=== PATIENT | female | born 1945 | race Caucasian/White ===

== ENCOUNTER 2021-03-19 08:35 | Outpatient (CLI) | payer MEDICARE | END 2021-03-19 08:36 | disposition home or self-care (01) | LOC: CSHCT 08:35 | PROVIDERS: ATTEND Family Medicine | DX: Z12.2 Encounter for screening for malignant neoplasm of respiratory organs (principal); Z87.891 Personal history of nicotine dependence; J44.9 Chronic obstructive pulmonary disease, unspecified | CPT/HCPCS: 71271 ==

== ENCOUNTER 2021-03-27 10:19 | Outpatient (CLI) | payer MEDICARE, OTHER | END 2021-03-27 10:20 | disposition home or self-care (01) | LOC: CSHMAMMO 10:19 | PROVIDERS: ATTEND Family Medicine | DX: Z12.31 Encounter for screening mammogram for malignant neoplasm of breast (principal) | CPT/HCPCS: 77063; 77067 ==

== ENCOUNTER 2021-10-11 09:18 | Outpatient (CLI) | payer MEDICARE | END 2021-10-11 09:19 | disposition home or self-care (01) | LOC: CSHCT 09:18 | PROVIDERS: ATTEND Family Medicine | DX: Z12.2 Encounter for screening for malignant neoplasm of respiratory organs (principal); Z87.891 Personal history of nicotine dependence; E07.89 Other specified disorders of thyroid | CPT/HCPCS: 71271 ==

== ENCOUNTER 2021-12-23 20:00 | Emergency (ER) | payer MEDICARE ==
[2021-12-23 21:44] LABS: #Eosinphils 0.2 10x3/uL (0.0-0.5); #Monocytes 0.5 10x3/uL (0.0-1.1); #Neutrophils 2.9 10x3/uL (1.5-8.4); %Basophils 0.3 % (0.0-2.0); %Eosinophils 2.8 % (0.0-6.0); %Lymphocytes 37.8 % (18.0-47.0); %Monocytes 8.1 % (0.0-10.0); %Neutrophils 50.8 % (40.0-75.0); Hemoglobin 11.6 g/dL (12.0-15.5); Mean Corpuscular HGB CONC 33.3 g/dL (32.0-36.0); Mean Corpuscular Hemoglobin 31.1 pg (27.0-33.0); Mean Corpuscular Volume 93.3 fl (81.6-98.3); Mean Platelet Volume 10.4 fl (7.4-10.4); Platelet Count 216 10x3/uL (150-450); RBC Distribution Width 13.9 % (11.5-14.5); Red Blood Cell (RBC) Count 3.73 10x6/uL (3.90-5.03); White Blood Cell (WBC) Count 5.8 10x3/uL (3.5-10.5)
[2021-12-23 21:56] LABS: SARS-CoV-2 NAA Rapid Test Not Detected (NotDetected)
[2021-12-23 21:58] LABS: ALT (SGPT) 26 U/L (8-55); AST (SGOT) 25 U/L (5-34); Alkaline Phosphatase 48 U/L (40-110); Anion Gap 13 mmol/L (10-20); BUN (Urea Nitrogen) 15 mg/dL (9.8-20.1); Bilirubin, Total 0.3 mg/dL (0.2-1.2); CK (CPK) 61 U/L (29-168); Calc. Creatinine Clearance 0 mL/min (70-130); Calcium 9.9 mg/dL (7.8-10.44); Carbon Dioxide 23 mmol/L (23-31); Chloride 110 mmol/L (98-107); Estimated GFR 61; Globulin 2.6 g/dL (2.4-3.5); Glucose 135 mg/dL (83-110); Lipase 22 U/L (8-78); Potassium 3.6 mmol/L (3.5-5.1); Protein, Total 6.6 g/dL (5.8-8.1); Sodium 142 mmol/L (136-145)
[2021-12-24 00:31] LABS: Bilirubin Neg (Negative); Blood, Urine Negative (Negative); Clarity Clear (Clear); Glucose, Urine (Dipstick) Normal (Negative); Ketone, Urine Negative (Negative); Leukocyte 100 (Negative); Nitrite Positive (Negative); Protein, Urine (Dipstick) 15 mg/dl (Neg-Trace); Urobilinogen Normal mg/dL (Less than 2)
[2021-12-24 01:16] LABS: Bacteria/HPF 1+ HPF (None Seen); RBC/HPF 0-3 HPF (0-3); Squamous Epithelial 0-3 HPF (0-3)
== END 2021-12-24 01:02 | disposition home or self-care (01) ==
LOC: CSHERS 20:00
DX: B34.9 Viral infection, unspecified (principal); N30.00 Acute cystitis without hematuria; E11.9 Type 2 diabetes mellitus without complications; Z20.822 Contact with and (suspected) exposure to COVID-19
CPT/HCPCS: 0240U; 71045; 80053; 82550; 83605; 83690; 84484; 85025; 93005; 81003; 81015; 96360

== ENCOUNTER 2022-04-01 14:01 | Inpatient (IN) | payer MEDICARE ==
[2022-04-01 14:52] LABS: #Eosinphils 0.1 10x3/uL (0.0-0.5); #Monocytes 0.5 10x3/uL (0.0-1.1); #Neutrophils 4.7 10x3/uL (1.5-8.4); %Basophils 0.3 % (0.0-2.0); %Eosinophils 1.4 % (0.0-6.0); %Neutrophils 72.1 % (40.0-75.0); Hemoglobin 11.6 g/dL (12.0-15.5); Mean Corpuscular HGB CONC 32.7 g/dL (32.0-36.0); Mean Corpuscular Hemoglobin 30.4 pg (27.0-33.0); Mean Corpuscular Volume 93.2 fl (81.6-98.3); Mean Platelet Volume 10.9 fl (7.4-10.4); Platelet Count 268 10x3/uL (150-450); RBC Distribution Width 13.3 % (11.5-14.5); Red Blood Cell (RBC) Count 3.81 10x6/uL (3.90-5.03); White Blood Cell (WBC) Count 6.5 10x3/uL (3.5-10.5)
[2022-04-01 14:54] LABS: Prothrombin Time 10.6 sec (9.5-12.1)
[2022-04-01] MEDS ORDERED: Aspirin 300 MG Suppository ONE (15:00)
[2022-04-01 15:01] LABS: PTT 20.5 sec (22.0-33.0)
[2022-04-01 15:03] LABS: ALT (SGPT) 15 U/L (8-55); AST (SGOT) 18 U/L (5-34); Acetaminophen Less than 10.0 mcg/mL (10.0-30.0); Albumin 3.9 g/dL (3.4-4.8); Alcohol Less than 10 mg/dL (Less than 10); Alkaline Phosphatase 60 U/L (40-110); Anion Gap 16 mmol/L (10-20); BUN (Urea Nitrogen) 16 mg/dL (9.8-20.1); Bilirubin, Total 0.5 mg/dL (0.2-1.2); CK (CPK) 54 U/L (29-168); Calc. Creatinine Clearance 0 mL/min (70-130); Carbon Dioxide 20 mmol/L (23-31); Chloride 109 mmol/L (98-107); Estimated GFR 63; Globulin 2.7 g/dL (2.4-3.5); Glucose 143 mg/dL (83-110); Protein, Total 6.6 g/dL (5.8-8.1); Salicylate Less than 8.0 mg/dL (15.0-30.0); Sodium 141 mmol/L (136-145)
[2022-04-01] MEDS ORDERED: Iopamidol 370 76% 100 ML VIAL ONE (15:21)
[2022-04-01 15:27] LABS: SARS-CoV-2 NAA Rapid Test Not Detected (NotDetected)
[2022-04-01] MEDS ORDERED: cefTRIAXone\\ROCEPHIN 1 GM VIAL ONE (16:07)
[2022-04-01] MEDS ORDERED: Dextrose 50% Abboject 50 ML SYRINGE SLOW IVP PRN (16:21)
[2022-04-01] MEDS ORDERED: Dextrose 5% in Water 1,000 ML IV PRN (16:21)
[2022-04-01] MEDS ORDERED: HumaLOG 300 UNITS/3 ML VIAL SC PRN (16:21)
[2022-04-01] MEDS ORDERED: HYDROcodone/Acetaminophen 5/325 mg Tablet PO PRN (16:22)
[2022-04-01] MEDS ORDERED: Ondansetron ODT 4 MG TAB PO PRN (16:22)
[2022-04-01] MEDS ORDERED: Acetaminophen 325 MG TAB PO PRN (16:22)
[2022-04-01] MEDS ORDERED: VANCOMYCIN 2 GRAM/400 ML BAG 2 GM in Premix Bag 1 BAG IVPB SCH (17:30)
[2022-04-01] MEDS ORDERED: 1/2 NS w/KCL 20 mEq 1,000 ML IV SCH (18:00)
[2022-04-01] MEDS ORDERED: Azithromycin 500 MG VIAL ONE (18:06)
[2022-04-01 18:44] LABS: Troponin I Less than 0.010 ng/mL (< 0.028)
[2022-04-01 21:04] LABS: Troponin I 0.014 ng/mL (< 0.028)
[2022-04-02 05:14] LABS: #Eosinphils 0.2 10x3/uL (0.0-0.5); #Monocytes 0.5 10x3/uL (0.0-1.1); #Neutrophils 3.9 10x3/uL (1.5-8.4); %Basophils 0.2 % (0.0-2.0); %Eosinophils 2.4 % (0.0-6.0); %Lymphocytes 26.7 % (18.0-47.0); %Monocytes 7.6 % (0.0-10.0); %Neutrophils 62.8 % (40.0-75.0); Mean Corpuscular HGB CONC 33.5 g/dL (32.0-36.0); Mean Corpuscular Hemoglobin 30.9 pg (27.0-33.0); Mean Corpuscular Volume 92.1 fl (81.6-98.3); Mean Platelet Volume 11.1 fl (7.4-10.4); Platelet Count 244 10x3/uL (150-450); RBC Distribution Width 13.2 % (11.5-14.5); Red Blood Cell (RBC) Count 3.56 10x6/uL (3.90-5.03); White Blood Cell (WBC) Count 6.2 10x3/uL (3.5-10.5)
[2022-04-02 05:31] LABS: Anion Gap 12 mmol/L (10-20); BUN (Urea Nitrogen) 12 mg/dL (9.8-20.1); Calc. Creatinine Clearance 97 mL/min (70-130); Calcium 9.8 mg/dL (7.8-10.44); Carbon Dioxide 20 mmol/L (23-31); Chloride 112 mmol/L (98-107); Estimated GFR 80; Glucose 108 mg/dL (83-110); Potassium 3.3 mmol/L (3.5-5.1); Sodium 141 mmol/L (136-145)
[2022-04-02] MEDS ORDERED: FLU VACC QS2022-23(65YR UP)/PF 240 MCG/0.7 ML SYRINGE IM ONE (09:00)
[2022-04-02] MEDS: Enoxaparin Sodium 40 MG/0.4 ML SYRINGE SC SCH (09:40)
[2022-04-02 13:31] VITALS: BMI 36.6
[2022-04-02] MEDS ORDERED: Labetalol HCl 100 MG/20 ML VIAL SLOW IVP PRN (14:13)
[2022-04-02] MEDS ORDERED: cefTRIAXone\\ROCEPHIN 1 GM in Sodium Chloride 0.9% 100 ML IVPB SCH (16:00)
[2022-04-02] MEDS ORDERED: Azithromycin 500 MG in Sodium Chloride 0.9% 250 ML 250 ML IVPB SCH (18:00)
[2022-04-03 04:42] VITALS: TEMP 98.3
[2022-04-03 07:01] LABS: #Eosinphils 0.2 10x3/uL (0.0-0.5); #Monocytes 0.5 10x3/uL (0.0-1.1); #Neutrophils 3.2 10x3/uL (1.5-8.4); %Basophils 0.2 % (0.0-2.0); %Eosinophils 3.1 % (0.0-6.0); %Lymphocytes 26.7 % (18.0-47.0); %Monocytes 8.6 % (0.0-10.0); %Neutrophils 61.2 % (40.0-75.0); Hemoglobin 10.7 g/dL (12.0-15.5); Mean Corpuscular HGB CONC 34.2 g/dL (32.0-36.0); Mean Corpuscular Hemoglobin 31.2 pg (27.0-33.0); Mean Corpuscular Volume 91.3 fl (81.6-98.3); Platelet Count 226 10x3/uL (150-450); RBC Distribution Width 13.2 % (11.5-14.5); Red Blood Cell (RBC) Count 3.43 10x6/uL (3.90-5.03); White Blood Cell (WBC) Count 5.2 10x3/uL (3.5-10.5)
[2022-04-03] MEDS: Enoxaparin Sodium 40 MG/0.4 ML SYRINGE SC SCH (08:26)
[2022-04-03 12:27] VITALS: BP 157/88
== END 2022-04-03 14:20 | disposition home health service (06) | DRG 70 ==
LOC: SUATTDRO 14:01 → CSHERS 14:01 → CSHTELE 20:36 → OBSVTOIN 04-03 11:26
PROVIDERS: ADMIT Internal Medicine; ATTEND Family Medicine
DX: G93.41 Metabolic encephalopathy (principal); J18.9 Pneumonia, unspecified organism; E11.9 Type 2 diabetes mellitus without complications; Z66 Do not resuscitate; E66.9 Obesity, unspecified; I10 Essential (primary) hypertension; I65.21 Occlusion and stenosis of right carotid artery; E04.2 Nontoxic multinodular goiter; K52.9 Noninfective gastroenteritis and colitis, unspecified; K21.9 Gastro-esophageal reflux disease without esophagitis; Z20.822 Contact with and (suspected) exposure to COVID-19; K29.70 Gastritis, unspecified, without bleeding; Z96.659 Presence of unspecified artificial knee joint; Z88.5 Allergy status to narcotic agent; Z90.710 Acquired absence of both cervix and uterus; Z90.49 Acquired absence of other specified parts of digestive tract; Z98.890 Other specified postprocedural states; Z68.36 Body mass index [BMI] 36.0-36.9, adult
CPT/HCPCS: 0042T; 36415; 36416; 70450; 70498; 71045; 80048; 80053; 80307; 82550; 83605; 83690; 84443; 84484; 85025; 85610; 85730; 93005; 96374; 96375; J0456; J0696; J1650; J3370; J3480; J3490; J7050; Q9967

== ENCOUNTER 2023-10-21 09:35 | Outpatient (CLI) | payer MEDICARE | END 2023-10-21 09:36 | disposition home or self-care (01) | LOC: CSHULT 09:35 | PROVIDERS: ATTEND Family Medicine | DX: E83.52 Hypercalcemia (principal); E04.2 Nontoxic multinodular goiter | CPT/HCPCS: 76536 ==